=== PATIENT | female | born 1965 | race Caucasian/White ===

== ENCOUNTER 2017-12-01 14:49 | Emergency (ER) | payer OTHER ==
[~2017-12-01] VITALS: Ht 172.7 cm; Wt 112.5 kg
[~2017-12-01 14:49] MED LIST: ALPRAZOLAM 0.0.25 M1; AUGMENTIN 875-1 EACH PO; BENZONATATE200 MG; BUTALB-APAP-CA1 EACH PO; FLEXERIL PO; HALOPERIDOL 1 MG1 MG; HYDROCODONE-AP1 EAC6 PO; IBUPROFEN 800800 M1; IBUPROFEN 800800 M1 PO; KEFLEX500 MG PO; KLONOPIN0.5 MG; LEXAPRO 10 MG T10 MG PO; LISINOPRIL-HCT1 EAC2 PO; MEDROLDOSEPACK PO; METHYLPREDNISOLO4 M1; NORCO 5-325 TA1 EACH PO; PRINIVIL20 MG PO; PROAIR HFA8.5 GM; VERAMYST10 GM; ZANAFLEX4 MG
[2017-12-01] MEDS ORDERED: LEXAPRO 10 MG T10 M2 PO (15:10)
[2017-12-01] MEDS ORDERED: OMEPRAZOLE10 MG PO (15:10)
[2017-12-01] MEDS ORDERED: XANAX 0.25 MG0.25 MG PO (15:10)
[2017-12-01] MEDS ORDERED: FLEXERIL PO (15:10)
[2017-12-01] MEDS ORDERED: BIOTIN1 M1 PO (15:10)
[2017-12-01] MEDS ORDERED: UNICOMPLEX M TA1 TA1 PO (15:11)
[2017-12-01 15:23] LABS: URINE BILIRUBIN NEGATIVE (Negative); URINE BLOOD 2+ (Negative); URINE CLARITY CLEAR; URINE COLOR YELLOW; URINE GLUCOSE-RANDOM NEGATIVE (Negative); URINE KETONES TRACE (Negative); URINE LEUKOCYTES-REFLEX NEGATIVE (Negative); URINE PROTEIN NEGATIVE (Negative); URINE SPECIFIC GRAVITY >= 1.030 (1.005-1.030); URINE UROBILINOGEN 0.2 E.U./dl (0.2-1.0)
[2017-12-01 15:24] LABS: URINE NITRITE-REFLEX POSITIVE (Negative)
[2017-12-01 15:30] LABS: SQUAMOUS >10 Many /LPF (0-3)
[2017-12-01] MEDS ORDERED: BACTRIM DS TAB1 EACH PO (15:30)
[2017-12-01 15:31] LABS: BACTERIA-REFLEX >30 Many /HPF (None Seen); CASTS None Seen /LPF (None Seen); CRYSTALS None Seen /LPF (None Seen); URINE RBC 3-10 Few /HPF (0-2)
[2017-12-01] MEDS ORDERED: HYDROCODONE-AP1 EAC6 PO (15:31)
[2017-12-01] MEDS ORDERED: NAPROSYN500 MG PO (15:31)
[2017-12-01 15:50] VITALS: BP 120/71
== END 2017-12-01 15:50 | disposition home or self-care (01) ==
LOC: M.ERS 14:49
PROVIDERS: Physician Assistant
DX: N39.0 Urinary tract infection, site not specified (principal); F10.99 Alcohol use, unspecified with unspecified alcohol-induced disorder; F17.210 Nicotine dependence, cigarettes, uncomplicated

== ENCOUNTER 2018-01-12 22:20 | Inpatient (IN) | payer OTHER ==
[~2018-01-12] VITALS: Ht 172.7 cm; Wt 112.0 kg
[~2018-01-12 22:20] MED LIST changes: +BACTRIM DS TAB1 EACH PO; +BIOTIN1 M1 PO; +LEXAPRO 10 MG T10 M2 PO; +NAPROSYN500 MG PO; +OMEPRAZOLE10 MG PO; +UNICOMPLEX M TA1 TA1 PO; +XANAX 0.25 MG0.25 MG PO
[2018-01-12 22:24] VITALS: BP 130/84
[2018-01-12] MEDS ORDERED: ABILIFY 2 MG2 M1 PO (22:27)
[2018-01-12 22:45] LABS: ABSOLUTE EOSINOPHILS 0.1 thou/uL (0.0-0.7); ABSOLUTE MONOCYTES 0.7 thou/uL (0.0-1.2); ABSOLUTE NEUTROPHILS 5.2 thou/uL (1.6-8.1); BASOPHILS 0.5 %; EOSINOPHILS 0.8 %; HEMATOCRIT 36.7 % (37.0-47.0); HEMOGLOBIN 12.3 gm/dL (12.0-15.0); LYMPHOCYTES 33.5 %; MCH 29.7 pg (26.0-34.0); MCHC 33.6 g/dL (28.0-37.0); MCV 88.4 fL (80.0-100.0); MONOCYTES 7.6 %; MPV 7.7 fl. (7.2-11.1); NUCLEATED RBCS 0 /100WBC; PLATELET COUNT* 243 thou/uL (150-400); POLYS 57.6 %; RBC 4.16 mil/uL (4.20-5.00); RDW-CV 15.1 % (10.5-14.5)
[2018-01-12 22:56] LABS: ANION GAP 5 mmol/L (7-16); BUN 21 mg/dL (7-18); CALCIUM 9.6 mg/dL (8.5-10.1); CHLORIDE 106 mmol/L (98-107); CO2 31 mmol/L (21-32); CREATININE 0.8 mg/dL (0.6-1.3); GLUCOSE 95 mg/dL (70-99); POTASSIUM 4.1 mmol/L (3.5-5.1); SODIUM 142 mmol/L (136-145)
[2018-01-12 23:06] LABS: ALBUMIN 3.5 g/dL (3.4-5.0); ALKALINE PHOSPHATASE 114 U/L (46-116); LIPASE 174 U/L (73-393); NT-PRO BRAIN NAT PEPTIDE 39 pg/mL (<300); SGOT 15 U/L (15-37); SGPT 28 U/L (30-65); TOTAL BILIRUBIN 0.3 mg/dL (<0.1-1.0); TOTAL PROTEIN 7.1 g/dL (6.4-8.2); TROPONIN-I LEVEL <0.06 ng/mL (<0.06)
[2018-01-13] VITALS (7 sets, daily range): BP systolic 93–115; BP diastolic 48–71
--- NOTE | 2018-01-13 05:36 | NUR ---
PATIENT ARRIVED FROM ER AT 0050. PATIENT SETTLED TO ROOM. HISTORY, ASSESSMENT AND VITALS COMPLETED AND DOCUMENTED. PATIENT HAD COMPLAINTS OF LEFT SIDED CHEST PAIN, RATED 5/10 WORSE WITH MOVEMENT. PAIN HAS SINCE IMPROVED. PATIENT IS SLEEPING AT THIS TIME. CARDIC MONITOR SHOWS SINUS RYTHYM. BED ALARM ON. CALL LIGHT WITHIN REACH. WILL CONTINUE TO MONITOR.
--- NOTE | 2018-01-13 12:38 | EKG ---
[place] [address] ELECTROCARDIOGRAM REPORT Name: JULIO JACKSON Room: [address] ADM IN .R.#: [id number] Admission: 01/12/18 Attend Phys: Eugene Mueller MD Discharge: Date of : 63 Report #: [id number] THIS REPORT FOR: //name// [facility] ED Test Date: 2018-01-12 Test Time: 22:27:02 Pat Name: JULIO JACKSON Department: Room: [facility] Gender: Facilities Supervisor: NIKHIL : 1965 Requested By: Gabe Garzon Order Number: [id number] MD: Joe Shields Measurements Intervals [place] Rate: 73 P: 44 MO: 153 QRS: 20 QRSD: 93 T: 22 QT: 397 QTc: 438 Interpretive Statements Sinus rhythm Compared to ECG 01/08/2014 21:28:57 T-wave abnormality no longer present Electronically Signed On 01-13-2018 12:38:45 CDT by Joe Shields [email or web address] <ELECTRONICALLY SIGNED> By: Joe Shields MD, FAC 01/13/18 1238 26 Joe Shields MD, [facility] /EPI
--- NOTE | 2018-01-13 14:38 | NUR ---
PATIENT LEFT UNIT AMBULATORY AROUND 12:30. PATIENT LEFT UNIT WITHOUT NURSE GOING OVER DISCHARGE PAPERWORK WITH PATIENT. THERE WERE NO NEW MED SCRIPTS. NURSE LOOSELY WENT OVER DISCHARGE INFOMATION WITH PATIENT BEFORE SHE LEFT. NURSE CALLED PATIENT TO TRY TO GO OVER DISCHARGE EDUCATION BUT PHONE NUMBER LISTED FOR PATIENT IS NOT A WORKING NUMBER. IV DC'D.
== END 2018-01-13 14:41 | disposition home or self-care (01) | DRG 313 ==
LOC: M.ERS 22:20 → M.2W 23:15 → M.TBA-ER 23:15 → M.2W 01-13 00:47
PROVIDERS: Emergency Medicine Emergency Medical Services; ADMIT Internal Medicine
DX: R07.89 Other chest pain (principal); F31.9 Bipolar disorder, unspecified; M19.90 Unspecified osteoarthritis, unspecified site; I10 Essential (primary) hypertension; M54.9 Dorsalgia, unspecified; M54.2 Cervicalgia; G89.29 Other chronic pain; E78.5 Hyperlipidemia, unspecified; G47.33 Obstructive sleep apnea (adult) (pediatric); G62.9 Polyneuropathy, unspecified; F41.9 Anxiety disorder, unspecified; Z87.891 Personal history of nicotine dependence; Z90.49 Acquired absence of other specified parts of digestive tract; Z98.84 Bariatric surgery status; Z79.899 Other long term (current) drug therapy; Z98.891 History of uterine scar from previous surgery; Z82.3 Family history of stroke

== ENCOUNTER 2018-04-19 11:40 | Emergency (ER) | payer OTHER ==
[~2018-04-19] VITALS: Ht 172.7 cm; Wt 103.4 kg
[~2018-04-19 11:40] MED LIST changes: +ABILIFY 2 MG2 M1 PO
[2018-04-19 12:02] LABS: ABSOLUTE BASOPHILS 0.1 thou/uL (0.0-0.2); ABSOLUTE LYMPHOCYTES 3.2 thou/uL (0.8-5.3); ABSOLUTE MONOCYTES 0.9 thou/uL (0.0-1.2); ABSOLUTE NEUTROPHILS 8.2 thou/uL (1.6-8.1); BASOPHILS 0.7 %; EOSINOPHILS 0.2 %; HEMATOCRIT 41.4 % (37.0-47.0); HEMOGLOBIN 13.7 gm/dL (12.0-15.0); LYMPHOCYTES 25.9 %; MCH 29.7 pg (26.0-34.0); MCV 90.2 fL (80.0-100.0); MPV 7.3 fl. (7.2-11.1); NUCLEATED RBCS 0 /100WBC; PLATELET COUNT* 354 thou/uL (150-400); POLYS 66.2 %; RBC 4.59 mil/uL (4.20-5.00); RDW-CV 13.9 % (10.5-14.5); WBC 12.4 thou/uL (4.0-11.0)
[2018-04-19 12:16] LABS: ANION GAP 10 mmol/L (7-16); BUN 14 mg/dL (7-18); CALCIUM 9.7 mg/dL (8.5-10.1); CHLORIDE 104 mmol/L (98-107); CO2 26 mmol/L (21-32); CREATININE 0.7 mg/dL (0.6-1.3); GLUCOSE 93 mg/dL (70-99); POTASSIUM 3.8 mmol/L (3.5-5.1); SODIUM 140 mmol/L (136-145)
[2018-04-19 12:26] LABS: ALBUMIN 3.6 g/dL (3.4-5.0); ALKALINE PHOSPHATASE 75 U/L (46-116); LIPASE 101 U/L (73-393); MAGNESIUM 1.7 mg/dL (1.8-2.4); NT-PRO BRAIN NAT PEPTIDE 95 pg/mL (<300); SGOT 26 U/L (15-37); SGPT 28 U/L (30-65); TOTAL BILIRUBIN 0.4 mg/dL (<0.1-1.0); TOTAL PROTEIN 7.4 g/dL (6.4-8.2); TROPONIN-I LEVEL <0.06 ng/mL (<0.06)
--- NOTE | 2018-04-19 13:59 | EKG ---
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 : 1965 Requested By: Gabe Garzon Order Number: [id number] MD: Jermain Pérez Measurements Intervals [place] Rate: 107 P: 30 HI: 135 QRS: 12 QRSD: 88 T: 4 QT: 344 QTc: 459 Interpretive Statements Sinus tachycardia Probable left atrial enlargement Compared to ECG 01/12/2018 22:27:02 Sinus rhythm no longer present Electronically Signed On 04-19-2018 13:59:30 CDT by Jermain Pérez [email or web address] <ELECTRONICALLY SIGNED> By: Jermain Pérez MD, [facility] 04/19/18 1359 1145 1145 Jermain Pérez MD, FACC /EPI
[2018-04-19 15:34] VITALS: BP 141/99
--- NOTE | 2018-04-20 10:46 | EKG ---
[place] [address] ELECTROCARDIOGRAM REPORT Name: MANUELJULIO Omer Room: [facility]#: [id number] Admission: 04/19/18 Attend Phys: Discharge: 04/19/18 Date of : 63 Report #: [id number] THIS REPORT FOR: //name// 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
== END 2018-04-19 15:35 | disposition home or self-care (01) ==
LOC: M.ERS 11:40
PROVIDERS: Emergency Medicine Emergency Medical Services
DX: R00.2 Palpitations (principal); F14.10 Cocaine abuse, uncomplicated; I10 Essential (primary) hypertension; F31.9 Bipolar disorder, unspecified; G47.30 Sleep apnea, unspecified; M19.90 Unspecified osteoarthritis, unspecified site; Z87.891 Personal history of nicotine dependence

== ENCOUNTER 2018-09-18 08:24 | Emergency (ER) | payer OTHER ==
[~2018-09-18] VITALS: Ht 172.7 cm; Wt 101.2 kg
[2018-09-18] MEDS ORDERED: VITAMIN D2000 UNIT PO (08:37)
[2018-09-18] MEDS ORDERED: B12INJ IM (08:37)
[2018-09-18] MEDS ORDERED: PREDNISONE 20 M20 M1 PO (09:02)
[2018-09-18] MEDS ORDERED: NORCO 5-325 TA1 EACH PO (09:02)
[2018-09-18] MEDS ORDERED: FLEXERIL PO (09:02)
[2018-09-18 09:38] VITALS: BP 145/95
== END 2018-09-18 09:38 | disposition home or self-care (01) ==
LOC: M.ERS 08:24
DX: M54.31 Sciatica, right side (principal); R11.2 Nausea with vomiting, unspecified; F31.9 Bipolar disorder, unspecified; G47.30 Sleep apnea, unspecified; I10 Essential (primary) hypertension; E78.5 Hyperlipidemia, unspecified; F41.9 Anxiety disorder, unspecified; G62.9 Polyneuropathy, unspecified; Z98.890 Other specified postprocedural states; Z87.01 Personal history of pneumonia (recurrent); Z87.891 Personal history of nicotine dependence; Z90.49 Acquired absence of other specified parts of digestive tract

== ENCOUNTER 2019-12-02 07:30 | Emergency (ER) | payer OTHER ==
[~2019-12-02] VITALS: Ht 172.7 cm; Wt 103.4 kg
[~2019-12-02 07:30] MED LIST changes: +B12INJ IM; +PREDNISONE 20 M20 M1 PO; +VITAMIN D2000 UNIT PO
[2019-12-02] MEDS ORDERED: NEURONTIN 300M300 M2 PO (07:48)
[2019-12-02] MEDS ORDERED: CELEBREX50 MG PO (07:48)
[2019-12-02 08:02] LABS: ABSOLUTE EOSINOPHILS 0.1 thou/uL (0.0-0.7); ABSOLUTE LYMPHOCYTES 1.6 thou/uL (0.8-5.3); ABSOLUTE MONOCYTES 0.4 thou/uL (0.0-1.2); ABSOLUTE NEUTROPHILS 2.3 thou/uL (1.6-8.1); BASOPHILS 0.7 %; EOSINOPHILS 1.9 %; HEMATOCRIT 40.6 % (37.0-47.0); HEMOGLOBIN 13.8 gm/dL (12.0-15.0); LYMPHOCYTES 36.4 %; MCH 30.2 pg (26.0-34.0); MCV 88.8 fL (80.0-100.0); MONOCYTES 8.5 %; MPV 6.8 fl. (7.2-11.1); NUCLEATED RBCS 0 /100WBC; PLATELET COUNT* 257 thou/uL (150-400); POLYS 52.5 %; RBC 4.58 mil/uL (4.20-5.00); RDW-CV 13.5 % (10.5-14.5); WBC 4.4 thou/uL (4.0-11.0)
[2019-12-02 08:08] LABS: CALCIUM 9.3 mg/dL (8.5-10.1); CREATININE 0.8 mg/dL (0.6-1.3); POTASSIUM 3.8 mmol/L (3.5-5.1)
[2019-12-02 08:12] LABS: ALBUMIN 3.3 g/dL (3.4-5.0); TOTAL BILIRUBIN 0.6 mg/dL (<0.1-1.0); TOTAL PROTEIN 7.1 g/dL (6.4-8.2)
[2019-12-02 09:06] LABS: PROTIME 10.2 Seconds (9.20-11.50)
[2019-12-02] MEDS ORDERED: HYDROCODON-ACE1 EAC7 PO (10:43)
[2019-12-02] MEDS ORDERED: PREDNISONE 20 M20 MG PO (10:43)
[2019-12-02] MEDS ORDERED: TORADOL 10 MG T10 MG PO (10:43)
[2019-12-02 11:03] VITALS: BP 141/82
--- NOTE | 2019-12-04 13:56 | EKG ---
[place] [address] ELECTROCARDIOGRAM REPORT Name: JULIO JACKSON Room: [facility]#: [id number] Admission: 12/02/19 Attend Phys: Discharge: 12/02/19 Date of : 63 Date of Service: 12/02/19 0738 Report #: [id number] THIS REPORT FOR: cc: Rancho Burks MD, Bruce D. 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: [facility] : 1965 Requested By: Malena Hutchinson Order Number: [id number] MD: Je Kimble Measurements Intervals [place] Rate: 70 P: 43 MS: 136 QRS: 6 QRSD: 92 T: -3 QT: 408 QTc: 441 Interpretive Statements Sinus rhythm Baseline wander in lead(s) II,III,aVF,V2,V3 Compared to ECG 04/19/2018 14:53:41 Sinus tachycardia no longer present T-wave abnormality no longer present Electronically Signed On 12-02-2019 16:11:04 NETBACKUP ADMIN by Je Kimble [email or web address] <ELECTRONICALLY SIGNED> By: Je Kimble MD, [facility] 12/02/19 1611 7 7 Je Kimble MD, [facility] /EPI
== END 2019-12-02 11:05 | disposition home or self-care (01) ==
LOC: M.ERS 07:30
PROVIDERS: Personal Emergency Response Attendant
DX: R07.89 Other chest pain (principal); I10 Essential (primary) hypertension; E78.5 Hyperlipidemia, unspecified; F31.9 Bipolar disorder, unspecified; F41.9 Anxiety disorder, unspecified; G47.30 Sleep apnea, unspecified; Z90.49 Acquired absence of other specified parts of digestive tract; Z98.84 Bariatric surgery status; Z98.890 Other specified postprocedural states; Z87.891 Personal history of nicotine dependence

== ENCOUNTER 2020-05-18 13:25 | Emergency (ER) | payer OTHER ==
[~2020-05-18] VITALS: Ht 172.7 cm; Wt 102.1 kg
[~2020-05-18 13:25] MED LIST changes: +CELEBREX50 MG PO; +HYDROCODON-ACE1 EAC7 PO; +NEURONTIN 300M300 M2 PO; +PREDNISONE 20 M20 MG PO; +TORADOL 10 MG T10 MG PO
[2020-05-18] MEDS ORDERED: SUPER THERAVIT1 EACH PO (13:42)
[2020-05-18] MEDS ORDERED: LATUDA20 MG PO (13:42)
[2020-05-18] MEDS ORDERED: VYVANSE10 MG PO (13:42)
[2020-05-18] MEDS ORDERED: XANAX 0.5 MG0.5 MG PO (13:42)
[2020-05-18 14:24] LABS: ABSOLUTE EOSINOPHILS 0.1 thou/uL (0.0-0.7); ABSOLUTE LYMPHOCYTES 1.7 thou/uL (0.8-5.3); ABSOLUTE MONOCYTES 0.4 thou/uL (0.0-1.2); ABSOLUTE NEUTROPHILS 2.8 thou/uL (1.6-8.1); BASOPHILS 0.9 %; EOSINOPHILS 2.8 %; HEMATOCRIT 42.9 % (37.0-47.0); HEMOGLOBIN 14.5 gm/dL (12.0-15.0); LYMPHOCYTES 33.5 %; MCH 30.9 pg (26.0-34.0); MCHC 33.8 g/dL (28.0-37.0); MCV 91.2 fL (80.0-100.0); MONOCYTES 7.6 %; MPV 7.3 fl. (7.2-11.1); NUCLEATED RBCS 0 /100WBC; PLATELET COUNT* 251 thou/uL (150-400); POLYS 55.2 %; RDW-CV 14.8 % (10.5-14.5); WBC 5.1 thou/uL (4.0-11.0)
[2020-05-18 14:34] LABS: CALCIUM 9.1 mg/dL (8.5-10.1); POTASSIUM 4.8 mmol/L (3.5-5.1)
[2020-05-18 14:44] LABS: ALBUMIN 3.6 g/dL (3.4-5.0); TOTAL BILIRUBIN 0.2 mg/dL (<0.1-1.0); TOTAL PROTEIN 7.5 g/dL (6.4-8.2)
--- NOTE | 2020-05-18 15:18 | EKG ---
[place] [address] ELECTROCARDIOGRAM REPORT Name: JULIO JACKSON Room: [facility]#: [id number] Admission: 05/18/20 Attend Phys: Discharge: Date of : 63 Date of Service: 05/18/20 1338 Report #: [id number] THIS REPORT FOR: //name// [facility] ED Test Date: 2020-05-18 Test Time: 13:38:59 Pat Name: JULIO JACKSON Department: Room: Gender: Gis Programmer: [place] : 1965 Requested By: Dorothea Castellanos Order Number: [id number] MD: Je Kimble Measurements Intervals [place] Rate: 78 P: 44 [place]: 141 QRS: -5 QRSD: 91 T: 6 QT: 393 QTc: 448 Interpretive Statements Sinus rhythm Baseline wander in lead(s) V5 Compared to ECG 12/02/2019 07:38:18 No significant changes Electronically Signed On 05-18-2020 15:18:23 CDT by Je Kimble [email or web address] <ELECTRONICALLY SIGNED> By: Je Kimble MD, [facility] 05/18/20 1518 1338 1338 Je Kimble MD, [facility] /EPI
[2020-05-18] MEDS ORDERED: TYLENOL WITH CO1 TA1 PO (15:52)
[2020-05-18] MEDS ORDERED: DOXYCYCLINE 10100 MG PO (15:53)
[2020-05-18 16:01] VITALS: BP 125/80
== END 2020-05-18 16:01 | disposition home or self-care (01) ==
LOC: M.ERS 13:25
PROVIDERS: Nurse Practitioner Family
DX: S20.461A Insect bite (nonvenomous) of right back wall of thorax, initial encounter (principal); R06.00 Dyspnea, unspecified; I10 Essential (primary) hypertension; M19.90 Unspecified osteoarthritis, unspecified site; G62.9 Polyneuropathy, unspecified; G47.30 Sleep apnea, unspecified; F31.9 Bipolar disorder, unspecified; F41.9 Anxiety disorder, unspecified; Z90.49 Acquired absence of other specified parts of digestive tract; Z98.890 Other specified postprocedural states; Z87.891 Personal history of nicotine dependence; W57.XXXA Bitten or stung by nonvenomous insect and other nonvenomous arthropods, initial encounter; Y93.89 Activity, other specified; Y92.89 Other specified places as the place of occurrence of the external cause; Y99.8 Other external cause status

== ENCOUNTER 2020-07-06 15:05 | Emergency (ER) | payer OTHER ==
[~2020-07-06] VITALS: Ht 175.3 cm; Wt 103.0 kg
[~2020-07-06 15:05] MED LIST changes: +DOXYCYCLINE 10100 MG PO; +LATUDA20 MG PO; +SUPER THERAVIT1 EACH PO; +TYLENOL WITH CO1 TA1 PO; +VYVANSE10 MG PO; +XANAX 0.5 MG0.5 MG PO
[2020-07-06 15:48] LABS: ABSOLUTE EOSINOPHILS 0.1 thou/uL (0.0-0.7); ABSOLUTE MONOCYTES 0.5 thou/uL (0.0-1.2); ABSOLUTE NEUTROPHILS 3.2 thou/uL (1.6-8.1); BASOPHILS 0.7 %; EOSINOPHILS 1.2 %; HEMOGLOBIN 15.1 gm/dL (12.0-15.0); LYMPHOCYTES 34.9 %; MCH 30.5 pg (26.0-34.0); MCHC 34.3 g/dL (28.0-37.0); NUCLEATED RBCS 0 /100WBC; PLATELET COUNT* 289 thou/uL (150-400); POLYS 55.2 %; RBC 4.94 mil/uL (4.20-5.00); RDW-CV 13.2 % (10.5-14.5); WBC 5.8 thou/uL (4.0-11.0)
[2020-07-06 15:55] LABS: CALCIUM 9.5 mg/dL (8.5-10.1); POTASSIUM 3.9 mmol/L (3.5-5.1)
[2020-07-06 15:59] LABS: ALBUMIN 3.8 g/dL (3.4-5.0); TOTAL BILIRUBIN 0.5 mg/dL (<0.1-1.0); TOTAL PROTEIN 8.2 g/dL (6.4-8.2)
[2020-07-06 16:06] LABS: URINE BILIRUBIN NEGATIVE (Negative); URINE BLOOD NEGATIVE (Negative); URINE CLARITY CLEAR; URINE COLOR YELLOW; URINE GLUCOSE-RANDOM NEGATIVE (Negative); URINE KETONES NEGATIVE (Negative); URINE LEUKOCYTES-REFLEX NEGATIVE (Negative); URINE NITRITE-REFLEX NEGATIVE (Negative); URINE PROTEIN NEGATIVE (Negative); URINE SPECIFIC GRAVITY >= 1.030 (1.005-1.030)
[2020-07-06] MEDS ORDERED: NORCO 5-325 TA1 EAC2 PO (18:19)
[2020-07-06] MEDS ORDERED: FLEXERIL PO (18:19)
[2020-07-06 18:37] VITALS: BP 110/70
--- NOTE | 2020-07-07 16:02 | EKG ---
[place] [address] ELECTROCARDIOGRAM REPORT Name: MANUELJULIO Negra Room: [facility]#: [id number] Admission: 07/06/20 Attend Phys: Discharge: 07/06/20 Date of : 63 Date of Service: 07/06/20 1620 Report #: [id number] THIS REPORT FOR: //name// [facility] ED Test Date: 2020-07-06 Test Time: 16:20:51 Pat Name: JULIO JACKSON Department: Room: Gender: Dental Associate: [place] : 1965 Requested By: Gabe Garzon Order Number: [id number] MD: Je Kimble Measurements Intervals [place] Rate: 63 P: 27 [place]: 141 QRS: 12 QRSD: 97 T: 23 QT: 419 QTc: 433 Interpretive Statements Sinus rhythm Compared to ECG 05/18/2020 13:38:59 No significant changes Electronically Signed On 07-07-2020 16:02:36 CDT by Je Kimble [email or web address] <ELECTRONICALLY SIGNED> By: Je Kimble MD, [facility] 07/07/20 1602 162 Je Kimble MD, FAC /EPI
== END 2020-07-06 18:38 | disposition home or self-care (01) ==
LOC: M.ERS 15:05
PROVIDERS: Emergency Medicine Emergency Medical Services
DX: R10.11 Right upper quadrant pain (principal); G47.30 Sleep apnea, unspecified; M19.90 Unspecified osteoarthritis, unspecified site; I10 Essential (primary) hypertension; E78.5 Hyperlipidemia, unspecified; G62.9 Polyneuropathy, unspecified; Z87.891 Personal history of nicotine dependence; Z90.49 Acquired absence of other specified parts of digestive tract; Z87.01 Personal history of pneumonia (recurrent); Z98.890 Other specified postprocedural states

== ENCOUNTER 2020-09-23 13:00 | Emergency (ER) | payer BC ==
[~2020-09-23] VITALS: Ht 172.7 cm; Wt 104.3 kg
[~2020-09-23 13:00] MED LIST changes: +NORCO 5-325 TA1 EAC2 PO
[2020-09-23] MEDS ORDERED: ALBUTEROL2.5 MG/0.5 INH (13:57)
[2020-09-23] MEDS ORDERED: APAP W/CODEINE1 TA2 PO (13:57)
[2020-09-23] MEDS ORDERED: ONDANSETRON HCL4 M2 PO (13:57)
[2020-09-23 14:09] VITALS: BP 112/81
== END 2020-09-23 14:10 | disposition home or self-care (01) ==
LOC: M.ERS 13:00
DX: U07.1 COVID-19 (principal); M19.90 Unspecified osteoarthritis, unspecified site; I10 Essential (primary) hypertension; Z98.890 Other specified postprocedural states; Z90.49 Acquired absence of other specified parts of digestive tract; Z79.899 Other long term (current) drug therapy; Z87.891 Personal history of nicotine dependence